=== PATIENT | male | born 2000 | race Two or more races ===

== ENCOUNTER 2025-06-18 10:52 | Emergency (ER) | payer SELFPAY ==
[~2025-06-18] VITALS: Ht 185.4 cm; Wt 70.3 kg
[2025-06-18] MEDS ORDERED: ACETAMINOPHEN ES 500 MG TABLET ONE (11:13)
[2025-06-18] MEDS: CEFEPIME 1 GM in IV D5W 50 ML IV ONE (11:15)
[2025-06-18] MEDS: IV NS 0.9% 1,000 ML BAG IV ONE (11:15)
[2025-06-18 11:18] VITALS: TEMP 102.4
[2025-06-18] MEDS: ACETAMINOPHEN ES 500 MG TABLET PO ONE (11:18)
[2025-06-18 11:20] LABS: PLATELET COUNT (AUTO) 210 K/uL (150-450); RED BLOOD CELL COUNT(AUTO) 5.24 MIL/uL (4.5-6.0); RED CELL DISTRIBUTION WIDTH 14.1 % (11.5-15.0); WHITE BLOOD COUNT (AUTO) 8.1 K/uL (4.3-11.0)
[2025-06-18 11:29] LABS: CALCIUM, SERUM 9.1 mg/dL (8.5-10.1); CREATININE 1.1 mg/dL (0.6-1.3); SODIUM SERUM 136.0 mmol/L (136-145); UREA NITROGEN, BLOOD 19.0 mg/dL (7-18)
[2025-06-18 11:34] LABS: ASPARTATE AMINOTRANSFERASE 26.0 U/L (15-37); TOTAL PROTEIN, SERUM 7.7 g/dL (6.4-8.2)
[2025-06-18 11:35] LABS: INR 0.98 (0.91-1.10)
[2025-06-18 11:37] LABS: LACTIC ACID 1.3 mmol/L (0.4-2.0)
[2025-06-18] MEDS ORDERED: dexaMETHasone SOD PHOSPHATE 1 ML ONE (11:37)
[2025-06-18] MEDS ORDERED: KETOROLAC TROMETHAMINE INJ 30 MG/ML VIAL ONE (11:37)
[2025-06-18] MEDS: dexaMETHasone SOD PHOSPHATE 10 MG/ML VIAL MC ONE (11:43)
[2025-06-18] MEDS: KETOROLAC TROMETHAMINE INJ 30 MG/ML VIAL IV ONE (11:44)
[2025-06-18] MEDS: VANCOMYCIN 1 GM in IV D5W 250 ML IV ONE (11:45)
[2025-06-18 12:59] LABS: MONOTEST NEGATIVE (NEGATIVE)
[2025-06-18] MEDS ORDERED: KETO10TA2 PO (13:28)
[2025-06-18] MEDS ORDERED: AZIT500T4 PO (13:28)
[2025-06-18 13:36] VITALS: BP 120/72; O2SAT 98
[2025-06-18 13:52] LABS: APPEARANCE,URINE CLEAR (CLEAR); BLOOD, URINE Negative Ery/uL (NEGATIVE); LEUKOCYTE ESTERASE ,URINE Negative (NEGATIVE); UGLUCOSE Negative (NEGATIVE)
[2025-06-18 13:54] LABS: NITRITE, URINE NEGATIVE (NEGATIVE)
[2025-06-18 13:55] LABS: ADD URINE CULTURE NO; SQUAMOUS EPITHELIAL CELL,UR None Seen /HPF (None Seen)
== END 2025-06-18 13:42 | disposition home or self-care (01) ==
LOC: ER 10:58
DX: B27.90 Infectious mononucleosis, unspecified without complication (principal); J02.9 Acute pharyngitis, unspecified; R50.9 Fever, unspecified; R07.9 Chest pain, unspecified
CPT/HCPCS: 99285; 96365; 71045; 96375; 96368; 93005; 84145; 85025; 80048; 87040 ×2; 87086; 83605; 80076; 86308; 81001; 36415; 85730; J1885; J1100; J3373; J7060; J7030 ×2; J0692

== ENCOUNTER 2025-06-20 09:09 | Emergency (ER) | payer SELFPAY ==
[~2025-06-20] VITALS: Ht 185.4 cm; Wt 74.8 kg
[~2025-06-20 09:09] MED LIST: AZIT500T4 PO; KETO10TA2 PO
[2025-06-20] MEDS ORDERED: dexaMETHasone SOD PHOSPHATE 1 ML ONE (09:58)
[2025-06-20] MEDS ORDERED: KETOROLAC TROMETHAMINE 15 MG/ML VIAL ONE (09:58)
[2025-06-20] MEDS ORDERED: AMOX/CLAVULANATE 875 MG TABLET ONE (09:59)
[2025-06-20] MEDS ORDERED: ACETAMINOPHEN 325 MG TABLET ONE (09:59)
[2025-06-20] MEDS ORDERED: AMOX-430 PO (10:05)
[2025-06-20] MEDS: KETOROLAC TROMETHAMINE 15 MG/ML VIAL IM ONE (10:15)
[2025-06-20] MEDS: dexaMETHasone SOD PHOSPHATE 10 MG/ML VIAL IM ONE (10:15)
[2025-06-20] MEDS: ACETAMINOPHEN 325 MG TABLET PO ONE (10:16)
[2025-06-20] MEDS: AMOX/CLAVULANATE 875 MG TABLET PO ONE (10:16)
[2025-06-20 10:17] VITALS: BP 120/72; TEMP 102; O2SAT 98
== END 2025-06-20 10:19 | disposition home or self-care (01) ==
LOC: ER 09:09
DX: J02.8 Acute pharyngitis due to other specified organisms (principal); B96.89 Other specified bacterial agents as the cause of diseases classified elsewhere; Z79.52 Long term (current) use of systemic steroids
CPT/HCPCS: 99284; 96372; 87070; 87880; J1885; J1100; 86403-TC